=== PATIENT | male | born 1970 | race Caucasian/White ===

== ENCOUNTER 2016-08-12 08:19 | Day surgery (SDC) | payer OTHER ==
[2016-08-09 10:11] VITALS: BMI 28.3
[2016-08-12] MEDS ORDERED: PROPOFOL 20 ML ONE (08:57)
[2016-08-12] MEDS ORDERED: MIDAZOLAM HCL 2 MG/2 ML SINGLE DOSE VIAL ONE (08:58)
[2016-08-12] MEDS ORDERED: EPINEPHrine 1:1,000 1 MG/1 ML - 30ML VIAL (INJECTION) ONE (09:18)
[2016-08-12] MEDS ORDERED: BUPIVACAINE HCL/PF 2.5 MG/ML - 30 ML VIAL IJ ONE (09:18)
[2016-08-12] MEDS ORDERED: BUPIVACAINE HCL/PF 0.25% (2.5MG/ML) 10 ML VIAL IJ ONE (10:15)
[2016-08-12 12:56] VITALS: TEMP 98
[2016-08-12 13:01] VITALS: BP 132/84; PULSE 56
--- NOTE | 2016-08-13 14:38 | OP ---
DATE OF OPERATION: 08/12/2016 PREOPERATIVE DIAGNOSES: 1. Left knee cartilage injury. 2. Left knee synovitis. 3. Loose body left knee. POSTOPERATIVE DIAGNOSES: 1. Left knee cartilage injury. 2. Left knee synovitis. 3. Loose body left knee. PROCEDURE: 1. Left knee arthroscopy with chondroplasty and abrasion plasty. 2. Left knee arthroscopy with synovectomy; major 3. Left knee arthroscopy with excision of loose body through accessory portal. SURGEON: Nella Lopez M.D. GALLERY HOST: No title i assistant. FINDINGS: 1. Medial meniscus posterior horn and central minor fraying anteriorly. 2. Lateral meniscus posterior horn tear/fraying. 3. Synovitis patellofemoral medial lateral notch. 4. Grade 2 to 3 cartilage injury medial femoral condyle with grade 1 to 2 changes medial to plateau. 5. ACL and PCL intact. 6. Grade 2 cartilage injury lateral joint line. 7. Grade 2 to 4 cartilage injury patellofemoral trochlea. 8. Large loose body anterior joint 1.5-cm x 1.2-cm. 9. Multiple loose bodies throughout the joint less than 1-cm. PROCEDURE: Informed consent was obtained. The patient was taken to the operating room where the left lower extremity was prepped and draped in a sterile fashion. A tourniquet was placed on the left upper thigh but not inflated. Using standard arthroscopic technique, a lateral incision and portal were made which allowed for introduction of the camera into the suprapatellar bursa. This was then taken to the medial joint line where under direct visualization, a medial incision and portal were made. Excessive synovium noted in the medial, lateral, patellofemoral and notch area was removed by the up-biting shaver and Bovie cautery. This was found to bring inflammatory tissue into the joint surface, a source of joint pain and dysfunction. Probing of the medial and lateral meniscus found tears described in the findings. These were removed with an up-biting shaver and taken back to a stable rim. Grade 2-3 degenerative changes were treated with chondroplasty, removing all flaking surfaces with low setting Bovie used along the periphery. Grade 4 changes were treated with abrasion-plasty. All areas of the knee were once again re-examined. The knee was then drained. A single suture was placed on all portals. Sterile dressing was placed. The patient was transferred to the recovery room. A. Minor fraying of the meniscus was treated with Bovie cautery. The loose body was removed. An accessory medial portal had to be made extending into the primary medial portal due to the size and this was removed through that accessory portal. NELLA LOPEZ M.D. [id number] MTDD
--- NOTE | 2016-08-15 11:44 | PATH ---
Surgical Pathology Report Patient Name: FADI NEWELL [facility]. Rec. #: [id number] /Age/Gender: 1970 (Age: 45) / M Account: [id number] Location: [facility] Taken: 08/12/2016 Received: 08/12/2016 Reported: 08/15/2016 Physicians: Ezra Zhang M.D. Specimen(s) Received LEFT KNEE SHAVINGS Clinical History Internal derangement left knee Final Diagnosis KNEE, LEFT, ARTHROSCOPIC SHAVING: FIBROCARTILAGE WITH MYXOID DEGENERATIVE CHANGES, ALONG WITH PORTIONS OF HYPERPLASTIC SYNOVIUM AND HYALINE CARTILAGE. Electronically Signed Vin Weaver M.D. Gross Description Received in formalin, labeled "left knee shavings," is a 4.0 x 2.8 x 0.3 cm. aggregate of anthony-yellow soft tissue fragments. A associate financial representative portion is submitted in one cassette. /08/12/201608/12/2016
== END 2016-08-12 12:30 | disposition home or self-care (01) ==
LOC: FASU 08:19
PROVIDERS: ATTEND Orthopaedic Surgery
PROC: 0SCD4ZZ Extirpation of Matter from Left Knee Joint, Percutaneous Endoscopic Approach (ICD-10-PCS; 2016-08-12)
PROC: 0SBD4ZX Excision of Left Knee Joint, Percutaneous Endoscopic Approach, Diagnostic (ICD-10-PCS; principal; 2016-08-12 10:04)
DX: S83.8X2A Sprain of other specified parts of left knee, initial encounter (principal); S83.282A Other tear of lateral meniscus, current injury, left knee, initial encounter; M65.862 Other synovitis and tenosynovitis, left lower leg; M23.42 Loose body in knee, left knee; X58.XXXA Exposure to other specified factors, initial encounter; Y93.9 Activity, unspecified; Y92.9 Unspecified place or not applicable
CPT/HCPCS: 88304-TC; 94760

== ENCOUNTER 2018-09-14 07:23 | Day surgery (SDC) | payer OTHER ==
[2018-09-10 13:39] VITALS: BMI 29.2
[2018-09-14] MEDS ORDERED: EPINEPHrine 1:1,000 1 MG/1 ML - 30ML VIAL (INJECTION) ONE (08:17)
[2018-09-14] MEDS ORDERED: BUPIVACAINE HCL/PF 2.5 MG/ML - 30 ML VIAL IJ ONE (08:17)
[2018-09-14] MEDS ORDERED: MIDAZOLAM HCL 2 MG/2 ML SINGLE DOSE VIAL ONE (09:10)
[2018-09-14] MEDS ORDERED: PROPOFOL 20 ML ONE ×2 (09:20)
[2018-09-14] MEDS ORDERED: ONDANSETRON 4 MG/2 ML VIAL ONE (09:30)
[2018-09-14] MEDS ORDERED: ceFAZolin SODIUM 1 GM VIAL ONE (09:30)
[2018-09-14] MEDS ORDERED: KETOROLAC TROMETHAMINE 30 MG/1 ML VIAL ONE (09:30)
[2018-09-14] MEDS ORDERED: DEXAMETHASONE SOD PHOSPHATE 4 MG/1 ML VIAL ONE (09:30)
[2018-09-14] MEDS ORDERED: oxyCODONE HCL 5 MG TABLET PO PRN (10:14)
[2018-09-14] MEDS ORDERED: ONDANSETRON 4 MG/2 ML VIAL IVPUSH PRN (10:14)
[2018-09-14] MEDS ORDERED: LACTATED RINGERS SOLUTION 1,000 ML IV SCH (10:15)
--- NOTE | 2018-09-14 10:35 | OP ---
DATE OF OPERATION: 09/14/2018 LOCATION OF SERVICE: [facility]. SURGEON: Ezra Lopez MD M1 ARMOR CREWMAN: CHAGO Eaton PREOPERATIVE DIAGNOSES: 1. Left knee mediolateral meniscal tear. 2. Left knee cartilage injury. 3. Left knee synovitis. POSTOPERATIVE DIAGNOSES: 1. Left knee mediolateral meniscal tear. 2. Left knee cartilage injury. 3. Left knee synovitis. PROCEDURE: 1. Left knee arthroscopy, partial meniscectomy, mediolateral meniscus. CPT code 78186. 2. Left knee arthroscopy with chondroplasty and abrasoplasty. CPT code 36080. 3. Left knee arthroscopy with synovectomy. CPT code 42135. FINDINGS: 1. Medial meniscus central body towards posterior horn tear, central 6 cm inner third. 2. Lateral meniscus anterior horn tear/minor. 3. Synovitis of the patellofemoral and mediolateral notch with extensive thickened scar tissue along the anterior capsule. 4. Central grade 2-3 cartilage injury, medial femoral condyle, 6 cm x 4 cm. 5. ACL and PCL intact with appearance of old ACL injury. 6. Minor diffuse grade 1 changes lateral joint line. 7. Central grade 2-4 cartilage injury patellofemoral trochlea and patellofemoral joint with extensive thickened scar tissue causing grade 4 changes to anterior patellofemoral trochlea. PROCEDURE: Informed consent was obtained. The patient came to the operating room, where the lower extremity was prepped and draped in a sterile fashion. A tourniquet was placed on the upper thigh, but not inflated. Using standard arthroscopic technique, a lateral incision and portal was made to allow for introduction of the camera into the suprapatellar bursa. This was then taken to the medial joint line, where under direct visualization, a medial incision and portal was made. Excessive synovium noted in the medial, lateral and patellofemoral and notch area was removed by an upbiter, shaver and Bovie cautery. This was found to bring in inflammatory tissue into the joint surface, a source of pain and dysfunction. Probing of the medial and lateral meniscus found tears, as described in the findings. These were removed with the upbiter and shaver and taken back to a stable rim. Grade 2 to 3 degenerative changes were treated with a chondroplasty, removing all flaking surfaces with low-setting Bovie along the periphery to prevent further flaking. Grade 4 changes, as noted, were treated with an abrasoplasty, creating a bleeding surface at the bone/cartilage interface. Aggressive debridement with shaver/lyssa created bleeding surface. Micro fracture also done when indicated in findings. All areas of the knee were once again reexamined. The knee was then drained and a single suture was placed in all portals. A sterile dressing was placed and the patient was transferred to the recovery room without complication. The PA listed above was present and assisted at surgery. Their presence was absolutely medically necessary for the completion of the procedure. They helped hold the arthroscopy, pass instruments (and implants when indicated) and the procedure could not have been completed without their assistance. EZRA LOPEZ M.D. [id number]
[2018-09-14 11:12] VITALS: TEMP 97.5
[2018-09-14 11:55] VITALS: BP 122/76; PULSE 55
== END 2018-09-14 11:55 | disposition home or self-care (01) ==
LOC: FASU 07:23
PROVIDERS: ATTEND Orthopaedic Surgery
PROC: 0SBD4ZZ Excision of Left Knee Joint, Percutaneous Endoscopic Approach (ICD-10-PCS; 2018-09-14)
PROC: 0SBD4ZZ Excision of Left Knee Joint, Percutaneous Endoscopic Approach (ICD-10-PCS; 2018-09-14)
PROC: 0SBD4ZZ Excision of Left Knee Joint, Percutaneous Endoscopic Approach (ICD-10-PCS; principal; 2018-09-14 09:40)
DX: S83.242A Other tear of medial meniscus, current injury, left knee, initial encounter (principal); S83.282A Other tear of lateral meniscus, current injury, left knee, initial encounter; S83.8X2A Sprain of other specified parts of left knee, initial encounter; M65.862 Other synovitis and tenosynovitis, left lower leg; X58.XXXA Exposure to other specified factors, initial encounter; Y93.9 Activity, unspecified; Y92.9 Unspecified place or not applicable
CPT/HCPCS: 94760